=== PATIENT | male | born 1950 | race Two or more races ===

== ENCOUNTER 2016-12-12 14:12 | Emergency (ER) | payer SELFPAY ==
[~2016-12-12] VITALS: Ht 165.1 cm; Wt 77.1 kg
[2016-12-12 14:12] VITALS: BP 100/62
--- NOTE | 2016-12-12 14:14 | Emergency Room Report ---
History of Present Illness General Chief Complaint: Alcohol Intoxication Source: Patient, EMS Present Illness HPI 65YOM BIBEMS, found sleeping on street, bystanders called. Intoxicated, unsteady on feet Shopping cart full of bottles/cans No signs of trauma Wearing a helmet Patient cant give his name Looks familiar to staff HPI otherwise limited by intoxication Allergies: Coded Allergies: UNABLE TO ASSESS (Unverified , 12/12/16) Patient History Past Medical History: unable to obtain Past Surgical History: unable to obtain Pertinent Family History: unable to obtain Social History: Reports: alcohol use Reviewed Nursing Documentation: PMH: Agreed, PSxH: Agreed Nursing Documentation-PMH Past Medical History Deferred: Pt Cognitively Impaired Review of Systems All Other Systems: limited - Acute intoxication Physical Exam Vital Signs Date Time Temp Pulse Resp B/P Pulse Ox O2 Delivery O2 Flow Rate FiO2 12/12/16 14:05 98.6 100 16 100/62 99 Room Air Sp02 EP Interpretation: reviewed, normal General Appearance: normal inspection, well appearing, no apparent distress, alert, other - +AOB, wearing helmet, diane cheeks Head: normocephalic, atraumatic Eyes: bilateral eye EOMI, bilateral eye PERRL ENT: normal ENT inspection, hearing grossly normal, normal pharynx, no angioedema, normal voice Neck: normal inspection, full range of motion, supple, no bony tend Respiratory: normal inspection, lungs clear, normal breath sounds, no respiratory distress, no retraction, no wheezing Cardiovascular #1: regular rate, rhythm, no edema Gastrointestinal: normal inspection, normal bowel sounds, non tender, soft, no guarding, no hernia Genitourinary: no CVA tenderness Musculoskeletal: normal inspection, back normal, normal range of motion, Naila' s Sign negative Neurologic: normal inspection, alert, responsive, 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, motor strength/tone normal, speech normal Psychiatric: normal inspection, judgement/insight normal, mood/affect normal Skin: normal inspection, normal color, no rash Medical Decision Making Diagnostic Impression: Primary Impression: Acute alcoholic intoxication Qualified Codes: F10.929 - Alcohol use, unspecified with intoxication, unspecified ER Course Patient sober Asking for food, got sandwich Ambulating with steady gait DC from ER when sober Last Vital Signs Date Time Temp Pulse Resp B/P Pulse Ox O2 Delivery O2 Flow Rate FiO2 12/12/16 14:05 98.6 100 16 100/62 99 Room Air Status: improved Disposition: HOME, SELF-CARE FRANCHESKA MARTINEZ M.D. Dec 12, 2016 14:14
[2016-12-12] MEDS ORDERED: UNOBMED (14:16)
[2016-12-12 14:50] VITALS: BP 108/57
[2016-12-12 16:37] VITALS: BP 107/56
[2016-12-12 17:12] VITALS: BP 108/62
[2016-12-12 17:41] VITALS: BP 126/67
== END 2016-12-12 17:41 | disposition home or self-care (01) ==
LOC: EDBD 14:12 → EMR 14:39
DX: F10.929 Alcohol use, unspecified with intoxication, unspecified (principal)
CPT/HCPCS: 99282